=== PATIENT | male | born 1970 | race Caucasian/White ===

== ENCOUNTER 2020-10-01 11:47 | Emergency (ER) | payer BC, OTHER ==
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
[2020-10-01 14:35] LABS: BLOOD UREA NITROGEN,BUN 22 mg/dL (7.0-18.0); CARBON DIOXIDE,CO2 22.8 mmol/L (21.0-32.0); CHLORIDE,CL 101 mmol/L (98-107); GLUCOSE RANDOM 290 mg/dL (74-106); POTASSIUM,K 4.1 mmol/L (3.5-5.1); SODIUM,NA 136 mmol/L (136-148)
--- NOTE | 2020-10-01 15:03 | CT ---
Indication: Back pain Technique: Noncontrast CT of the lumbar spine. Coronal and sagittal reconstructions performed. Comparison: No comparison Findings: Trace retrolisthesis of L2-L3 appears degenerative. No acute malalignment. Mild to moderate compression deformity of L2 appears chronic. No acute fracture identified. No suspicious bone lesion. Moderate loss of intervertebral disc space height at L2-L3. Posterior disc bulge at L2-L3. Facet joints are fairly well maintained. The SI joints are intact. There is atherosclerotic calcification. Colonic diverticulosis noted. Impression: 1. [id number] compression deformity of L2 appears chronic. 2. No evidence of acute fracture or traumatic malalignment. 3. Moderate degenerative disc disease L2-L3 with posterior disc bulge at L2-L3. 4. Colonic diverticulosis. Please note that all CT scans at this facility use dose modulation, iterative reconstruction, and/or weight-based dosing when appropriate to reduce radiation dose to as low as reasonably achievable. Dictated by Mukesh Guillaume MD @ 10/01/2020 3:02:[address] Mukesh Guillaume @ Oct 01 2020 3:02PM
--- NOTE | 2020-10-03 12:59 | US ---
EXAM DATE: 10/01/20 PATIENT'S AGE: 50 Patient: GARY OROZCO Facility: [facility] Site . Site : 1970 Study: US-Testicle -10/01/2020 2:20:50 PM Ordering Physician: ED Provider Temporary Final Report: INDICATION: Left testicular pain. TECHNIQUE: Ultrasound of the scrotum and contents. Sonographic richard scale images were obtained with spectral and color Doppler imaging of the testicles. COMPARISON: None FINDINGS: Right testicle: Measures 4.8 x 2.0 x 3.0 cm. Normal echotexture. No masses. No suspicious calcifications. Normal arterial and venous color Doppler blood flow. Left testicle: Measures 4.7 x 2.1 x 3.0 cm. Normal echotexture. No masses. No suspicious calcifications. Normal arterial and venous and color Doppler blood flow. Epididymis: Unremarkable bilaterally. Normal blood flow. Other: Small bilateral hydroceles. No varicocele. Scrotal wall is normal. IMPRESSION: 1. Small bilateral hydroceles. 2. Otherwise no significant abnormality. Dictated by Mukesh Guillaume MD @ 10/01/2020 2:51:15 PM Signed by: Mukesh Guillaume MD @10/01/2020 2:51:15 PM (Electronic Signature) Report Signed by Proxy. KORIN
--- NOTE | 2020-10-03 13:00 | US ---
EXAM DATE: 10/01/20 PATIENT'S AGE: 50 Patient: GARY OROZCO Facility: Site . Site : 1970 Study: US-Testicle -10/01/2020 2:20:50 PM Ordering Physician: ED Provider Temporary Final Report: INDICATION: Left testicular pain. TECHNIQUE: Ultrasound of the scrotum and contents. Sonographic richard scale images were obtained with spectral and color Doppler imaging of the testicles. COMPARISON: None FINDINGS: Right testicle: Measures 4.8 x 2.0 x 3.0 cm. Normal echotexture. No masses. No suspicious calcifications. Normal arterial and venous color Doppler blood flow. Left testicle: Measures 4.7 x 2.1 x 3.0 cm. Normal echotexture. No masses. No suspicious calcifications. Normal arterial and venous and color Doppler blood flow. Epididymis: Unremarkable bilaterally. Normal blood flow. Other: Small bilateral hydroceles. No varicocele. Scrotal wall is normal. IMPRESSION: 1. Small bilateral hydroceles. 2. Otherwise no significant abnormality. Dictated by Mukesh Guillaume MD @ 10/01/2020 2:51:15 PM Signed by: Mukesh Guillaume MD @10/01/2020 2:51:15 PM (Electronic Signature) Report Signed by Proxy. KORIN
[2020-10-03 17:03] LABS: C.TRACHOMATIS BY TMA Negative (Negative); N.GONORRHOEAE BY TMA Negative (Negative)
== END 2020-10-01 16:18 | disposition home or self-care (01) ==
LOC: MW.ED 11:47
DX: M51.36 Other intervertebral disc degeneration, lumbar region (principal); E11.9 Type 2 diabetes mellitus without complications; Z79.84 Long term (current) use of oral hypoglycemic drugs; Z79.899 Other long term (current) drug therapy; Z86.16 Personal history of COVID-19; Z87.891 Personal history of nicotine dependence
CPT/HCPCS: 36415; 72131; 72131-26; 76870; 76870-26; 80053; 81003; 85025; 87491; 87591; 93976; 93976-26; 99283; 99284-25

== ENCOUNTER 2021-03-18 11:04 | Emergency (ER) | payer BC, OTHER ==
[2021-03-18 14:41] LABS: CORONAVIRUS COVID-19 NAA NEGATIVE (NEGATIVE); INFLUENZA A NAA NEGATIVE (NEGATIVE); INFLUENZA B NAA NEGATIVE (NEGATIVE)
--- NOTE | 2021-03-18 15:17 | EDM.PDOC ---
ED HPI GENERAL MEDICAL PROBLEM - General Chief Complaint: General Stated Complaint: CHEST HURTS, ACHES AND PAINS, COUGHING Time Seen by Provider: 03/18/21 14:59 Source of Information: Reports: Patient History Limitations: Reports: No Limitations - History of Present Illness INITIAL COMMENTS - FREE TEXT/NARRATIVE: HISTORY AND PHYSICAL: History of present illness: Patient is a 50-year-old male who presents to the emergency department with complaints of chest burning with a cough or breathing. Patient states that he is unable to sleep in his bed due to he feels as if he cannot get his breath he must sleep in a chair. Patient states that he is unable to wear his CPAP from his breathing. The patient states that he has a headache when he coughs or sneezes. The patient states that he has had no vomiting and no fever but a slight nausea today. Patient states that he went to the walk-in clinic on Friday and was given steroid for bronchitis. Patient denies any fever, chills, change in vision, syncope or near syncope. Denies any back pain, shortness of breath or cough. Denies any abdominal pain, nausea, vomiting, diarrhea, constipation or dysuria. Has not noted any blood in urine or stool. Patient has been eating and drinking appropriately. Review of systems: As per history of present illness and below otherwise all systems reviewed and negative. Past medical history: As per history of present illness and as reviewed below otherwise noncontributory. Surgical history: As per history of present illness and as reviewed below otherwise noncontributory. Social history: See social history for further information Family history: As per history of present illness and as reviewed below otherwise noncontributory. Physical exam: General: Well developed and well nourished. Alert and orientated x 3. Nontoxic in appearance and in no acute distress. Vital signs are stable and have been reviewed by me. Nursing notes were reviewed. HEENT: Atraumatic, normocephalic, pupils equal and reactive bilaterally, negative for conjunctival pallor or scleral icterus, mucous membranes moist, TMs normal bilaterally, throat clear, neck supple, nontender, trachea midline. No drooling or trismus noted. No meningeal signs. No hot potato voice noted. Lungs: Clear to auscultation bilaterally. No wheezes, rales, or rhonchi. Chest nontender. Normal work of breathing, no accessory muscles used. Heart: S1S2, regular rate and rhythm without overt murmur, gallops, or rubs. No JVD. No peripheral edema Abdomen: Soft, nondistended, nontender. Normoactive bowel sounds. Negative for masses or costovertebral tenderness. Skin: Intact, warm, dry. The patient's face is very red and alejandro in color.Telangiectasia noted bilateral cheeks and nose. Hematologic: No petechiae or purpra. Mucosa appropriate color and normal nail bed color and refill. Extremities: Atraumatic, moves all extremities per self without difficulty or deficits, negative for cords or calf pain. Neurovascular unremarkable. Neuro: Awake, alert, oriented. Cranial nerves II through XII unremarkable. Cerebellum unremarkable. Motor and sensory unremarkable throughout. Exam nonfocal. Psychiatric: Mood and affect are appropriate. Normal thought process. Answering questions appropriately. Notes: *This patient was seen and evaluated during the 2019 SARS-CoV-2 novel coronavirus pandemic period. Community viral transmission is ongoing at time of this encounter and the emergency department is operating under pandemic response procedures. As stated above the patient complaints of cough and chest burning with cough or breathing. He states that he is unable to breathe when he is lying down and asleep in a chair. The patient went to a walk-in clinic and received steroids for a bronchitis. The patient is able to talk in complete sentences without coughing or becoming short of breath. The patient's SPO2 on room air is 96%. The patient's face is very alejandro in color with Telangiectasia noted bilateral cheeks and nose. The patient used to be a smoker but has stopped smoking for over a year. For today's purposes I will obtain a chest x-ray, EKG, CBC, CMP and troponin. The patient's flu/COVID-19 swab is negative. Patient is agreeable with this plan. Patient's white blood cell count is elevated but this is due to his steroid intake. His glucose is 567 and the patient states this is due to his steroids. While I agree I am for the patient that I need to treat the glucose with some insulin. The patient states that he was treated with insulin while he was in the hospital and it did not do anything. The patient does not wish to stay for treatment of his glucose. I stressed to the patient that if he becomes ill or starts feeling bad requires increased drinking and increased urination and to monitor his glucose at home and if it does not come down he needs to return to the emergency department. The patient verbalized understanding. Chest x-ray Impression: No acute cardiopulmonary process. The patient's EKG and troponin were negative. This is most likely continuation of bronchitis. I informed the patient that bronchitis can last over 3 weeks and there is very little I can do for the cough. I have prescribed guaifenesin codeine 10 mls every 4-6 hours as needed for his cough. The patient verbalized understanding. I again talked to the patient about the need to treat his glucose and he declined. I have talked with the patient about today's findings, in addition to providing specific details for plan of care. Reassessment at the time of disposition demonstrates that the patient is in no acute distress. The patient is stable for discharge, counseling was provided and we discussed in great detail signs and symptoms that would prompt them to return to the Emergency Department. Medication, follow up and supportive care measures were reviewed and discussed. Voices understanding and is agreeable to plan of care. Denies any further questions or concerns at this time. Diagnostics: CBC, CMP, troponin, EKG, chest x-ray, COVID-19/flu swab Therapeutics:guaifenesin codeine 10 mls Prescription:guaifenesin codeine 10 mls every 4-6 hours as needed for Impression: Bronchitis, hyperglycemia Plan: 1. You were evaluated today on an emergent basis. Your complaints of cough and burning chest when you cough or sneeze was evaluated with an examination, blood work, EKG, and a chest x-ray. Your examination was benign. Your chest x-ray was normal. There was no evidence of pneumonia. Your EKG was normal. Your blood work showed an elevated white blood cell count and an elevated blood sugar and this is due to your steroids that you have been taking for your bronchitis. As we discussed you will continue to take your oral medications and do not want any other treatment for your glucose at this time. For your cough I have prescribed you with guaifenesin codeine 10 mils every 4-6 hours as needed for your cough. This was a handwritten prescription that was given to you. 2. You can alternate Tylenol and ibuprofen as needed for pain and fever management. 3. We encourage you to follow up with your primary care provider and/or recommended specialist in the next few days for re-evaluation and further care/management. 4. If your symptoms should worsen, new symptoms develop or any of the signs and symptoms we discussed should arise please return to the emergency room or call 911 (if needed). Definitive disposition and diagnosis as appropriate pending reevaluation and review of above. Bilateral Back Pain Score (Numeric/FACES): 6 - Related Data Allergies Allergy/AdvReac Type Severity Reaction Status Date / Time No Known Allergies Allergy Verified 10/01/20 11:57 Home Meds: Home Meds Amitriptyline [Elavil] 25 mg PO DAILY 10/01/20 [History] Empagliflozin/Metformin HCl [Synjardy Xr 12.5-1,000 mg Tab] 1 tab PO BID 10/01/20 [History] Gabapentin [Neurontin] 1 tab PO DAILY 10/01/20 [History] Glimepiride 4 mg PO BID 10/01/20 [History] Lisinopril/Hydrochlorothiazide [Lisinopril-Hctz 20-25 mg Tab] 1 tab PO DAILY 10/01/20 [History] Rosuvastatin [Crestor] 40 mg PO DAILY 10/01/20 [History] metFORMIN HCl [Metformin HCl] 1,000 mg PO BID 10/01/20 [History] methylPREDNISolone [Medrol] 4 mg PO ASDIRECTED #1 dosepk 10/01/20 [Rx] Past Medical History Respiratory History: Reports: Sleep Apnea Musculoskeletal History: Reports: Back Pain, Chronic Endocrine/Metabolic History: Reports: Diabetes, Type II - Infectious Disease History Infectious Disease History: Reports: Other (See Below) Other Infectious Disease History: COVID Social & Family History - Caffeine Use Caffeine Use: Reports: Coffee ED ROS GENERAL - Review of Systems Review Of Systems: Comprehensive ROS is negative, except as noted in HPI. ED EXAM, GENERAL - Physical Exam Exam: See Below (See dictation) Course - Vital Signs Last Recorded V/S: Last Vital Signs Temp 96.9 F 03/18/21 15:06 Pulse 97 03/18/21 15:06 Resp 18 03/18/21 15:06 BP 152/84 H 03/18/21 15:06 Pulse Ox 94 L 03/18/21 15:06 - Orders/Labs/Meds Labs: Laboratory Tests 03/18/21 03/18/2121 Range/Units 13:45 15:49 15:49 WBC 17.03 H (4.0-11.0) K/uL RBC 5.48 (4.50-5.90) M/uL Hgb 15.6 (13.0-17.0) g/dL Hct 46.4 (38.0-50.0) % MCV 84.7 (80.0-98.0) fL MCH 28.5 (27.0-32.0) pg MCHC 33.6 (31.0-37.0) g/dL RDW Std Deviation 42.3 (28.0-62.0) fl RDW Coeff of Aylin 14 (11.0-15.0) % Plt Count 334 (150-400) K/uL MPV 11.40 (7.40-12.00) fL Add Manual Diff YES Neutrophils % (Manual) 79 (48.0-80.0) % Lymphocytes % (Manual) 12 L (16.0-40.0) % Monocytes % (Manual) 8 (0.0-15.0) % Eosinophils % (Manual) 1 (0.0-7.0) % Nucleated RBC % 0.0 /100WBC Absolute Seg Neuts 13.5 H (1.4-5.7) Lymphocytes # (Manual) 2.0 (0.6-2.4) Monocytes # (Manual) 1.4 H (0.0-0.8) Eosinophils # (Manual) 0.2 (0.0-0.7) Nucleated RBCs # 0 K/uL Sodium 128 L (136-148) mmol/L Potassium 4.3 (3.5-5.1) mmol/L Chloride 93 L (98-107) mmol/L Carbon Dioxide 21.4 (21.0-32.0) mmol/L BUN 34 H (7.0-18.0) mg/dL Creatinine 1.1 (0.8-1.3) mg/dL Est Cr Clr Drug Dosing 89.16 mL/min Estimated GFR (MDRD) > 60.0 ml/min Glucose 567 H* (74-106) mg/dL Calcium 8.8 (8.5-10.1) mg/dL Total Bilirubin 0.4 (0.2-1.0) mg/dL AST 2 L (15-37) IU/L ALT 13 L (14-63) IU/L Alkaline Phosphatase 116 (46-116) U/L Troponin I < 0.050 (0.000-0.056) ng/mL Total Protein 8.1 (6.4-8.2) g/dL Albumin 3.4 (3.4-5.0) g/dL Globulin 4.7 H (2.6-4.0) g/dL Albumin/Globulin Ratio 0.7 L (0.9-1.6) Influenza Type A RNA NEGATIVE (NEGATIVE) Influenza Type B RNA NEGATIVE (NEGATIVE) SARS-CoV-2 RNA (HERMINIO) NEGATIVE (NEGATIVE) Meds: Medications Discontinued Medications Generic Name Dose Route Start Last Admin Trade Name Freq PRN Reason Stop Dose Admin Guaifenesin/Codeine Phosphate 10 ml 03/18/21 16:44 03/18/21 17:02 Codeine/Guaifenesin 10-100 Mg/5 Ml Syrup 5 Ml Cup PO 03/18/21 16:45 10 ml ONETIME ONE Administration Departure - Departure Time of Disposition: 16:54 Disposition: Home, Self-Care 01 Condition: Good Clinical Impression: Bronchitis, Hyperglycemia - Discharge Information *PRESCRIPTION DRUG MONITORING PROGRAM REVIEWED*: Not Applicable *COPY OF PRESCRIPTION DRUG MONITORING REPORT IN PATIENT DAMION: Not Applicable Instructions: Hyperglycemia, [id number], Acute Bronchitis, Adult Referrals: Kalpesh Golden MD [Primary Care Provider] - Forms: ED Department Discharge Additional Instructions: The following information is given to patients seen in the emergency department who are being discharged to home. This information is to outline your options for follow-up care. We provide all patients seen in our emergency department with a follow-up referral. The need for follow-up, as well as the timing and circumstances, are variable depending upon the specifics of your emergency department visit. If you don't have a primary care physician on staff, we will provide you with a referral. We always advise you to contact your personal physician following an emergency department visit to inform them of the circumstance of the visit and for follow-up with them and/or the need for any referrals to a consulting specialist. The emergency department will also refer you to a specialist when appropriate. This referral assures that you have the opportunity for follow-up care with a specialist. All of these measure are taken in an effort to provide you with optimal care, which includes your follow-up. Under all circumstances we always encourage you to contact your private physician who remains a resource for coordinating your care. When calling for follow-up care, please make the office aware that this follow-up is from your recent emergency room visit. If for any reason you are refused follow-up, please contact the [facility] Emergency Department at and asked to speak to the emergency department charge nurse. [facility] [address] [place] [id number] [facility] [address] [place] [id number] Plan: 1. You were evaluated today on an emergent basis. Your complaints of cough and burning chest when you cough or sneeze was evaluated with an examination, blood work, EKG, and a chest x-ray. Your examination was benign. Your chest x-ray was normal. There was no evidence of pneumonia. Your EKG was normal. Your blood work showed an elevated white blood cell count and an elevated blood sugar and this is due to your steroids that you have been taking for your bronchitis. As we discussed you will continue to take your oral medications and do not want any other treatment for your glucose at this time. For your cough I have prescribed you with guaifenesin codeine 10 mils every 4-6 hours as needed for your cough. This was a handwritten prescription that was given to you. 2. You can alternate Tylenol and ibuprofen as needed for pain and fever management. 3. We encourage you to follow up with your primary care provider and/or recommended specialist in the next few days for re-evaluation and further care/management. 4. If your symptoms should worsen, new symptoms develop or any of the signs and symptoms we discussed should arise please return to the emergency room or call 911 (if needed). Sepsis Event Note (ED) - Evaluation Sepsis Screening Result: No Definite Risk - Focused Exam Vital Signs: Vital Signs Temp Pulse Resp BP Pulse Ox 03/18/21 15:06 96.9 F 97 18 152/84 H 94 L
--- NOTE | 2021-03-18 15:35 | CR ---
Indication: Cough. Technique: PA and lateral views the chest. Comparison: None Findings: The heart is normal in size. The lungs are clear. No infiltrate, pleural effusion, or pneumothorax is identified. Impression: No acute cardiopulmonary process. Dictated by Mini Elliott MD @ 03/18/2021 3:33:26 PM (Electronically Signed)
[2021-03-18 16:30] LABS: BLOOD UREA NITROGEN,BUN 34 mg/dL (7.0-18.0); CARBON DIOXIDE,CO2 21.4 mmol/L (21.0-32.0); CHLORIDE,CL 93 mmol/L (98-107); POTASSIUM,K 4.3 mmol/L (3.5-5.1); SODIUM,NA 128 mmol/L (136-148)
[2021-03-18 16:35] LABS: GLUCOSE RANDOM 567 mg/dL (74-106)
[2021-03-18] MEDS ORDERED: Codeine/guaiFENesin 10-100 MG/5 ML Syrup 5 ML Cup PO ONE (16:44)
--- NOTE | 2021-03-18 16:49 | PCM.EKG ---
#1 Interpretation EKG Date: 03/18/21 Time: 15:38 Rhythm: NSR Rate (Beats/Min): 85 ST-T: Normal
== END 2021-03-18 17:07 | disposition home or self-care (01) ==
LOC: MW.ED 11:04
DX: J40 Bronchitis, not specified as acute or chronic (principal); E11.65 Type 2 diabetes mellitus with hyperglycemia; Z79.84 Long term (current) use of oral hypoglycemic drugs; Z79.899 Other long term (current) drug therapy; Z20.822 Contact with and (suspected) exposure to COVID-19
CPT/HCPCS: 0240U; 36415; 71046; 80053; 84484; 85025; 93005; 99285; A9270

== ENCOUNTER 2021-07-30 10:37 | Emergency (ER) | payer OTHER ==
[2021-07-30] MEDS ORDERED: Lidocaine 1% with EPINEPHrine 1:100,000 10 ML MDV INJECT ONE (11:46)
[2021-07-30] MEDS ORDERED: Lidocaine 1% 5 ML VIAL INJECT ONE ×2 (12:40→12:51)
== END 2021-07-30 13:52 | disposition home or self-care (01) ==
LOC: MW.ED 10:37
DX: L02.412 Cutaneous abscess of left axilla (principal); L03.112 Cellulitis of left axilla; E11.9 Type 2 diabetes mellitus without complications; I10 Essential (primary) hypertension; I25.2 Old myocardial infarction; Z79.899 Other long term (current) drug therapy; Z79.4 Long term (current) use of insulin
CPT/HCPCS: 10061; 99282-25

== ENCOUNTER 2021-08-01 15:47 | Emergency (ER) | payer OTHER | END 2021-08-01 16:22 | disposition home or self-care (01) | LOC: MW.ED 15:47 | DX: L02.412 Cutaneous abscess of left axilla (principal); E78.00 Pure hypercholesterolemia, unspecified; I10 Essential (primary) hypertension; I25.2 Old myocardial infarction; E11.9 Type 2 diabetes mellitus without complications; Z79.84 Long term (current) use of oral hypoglycemic drugs; Z79.899 Other long term (current) drug therapy | CPT/HCPCS: 99282 ==

== ENCOUNTER 2022-05-12 10:59 | Emergency (ER) | payer BC, OTHER ==
[2022-05-12] MEDS ORDERED: Acetaminophen/HYDROcodone 325-5 MG Tab PO ONE (11:27)
[2022-05-12] MEDS ORDERED: Ketorolac 60 MG/2 ML SDV IM ONE (12:27)
== END 2022-05-12 12:47 | disposition home or self-care (01) ==
LOC: MW.ED 10:59
DX: M54.50 Low back pain, unspecified (principal); E78.00 Pure hypercholesterolemia, unspecified; I10 Essential (primary) hypertension; I25.2 Old myocardial infarction; E11.40 Type 2 diabetes mellitus with diabetic neuropathy, unspecified; Z86.16 Personal history of COVID-19; Z79.4 Long term (current) use of insulin; Z79.899 Other long term (current) drug therapy; W00.0XXA Fall on same level due to ice and snow, initial encounter
CPT/HCPCS: 72131; 96372; 99283; A9270; J1885